=== PATIENT | female | born 1980 | race Caucasian/White ===

== ENCOUNTER 2018-08-22 20:55 | Emergency (ER) | payer OTHER ==
[~2018-08-22] VITALS: Ht 162.6 cm; Wt 81.7 kg
[2018-08-22] MEDS ORDERED: VENTOLIN HFA 1818 GM INH (22:31)
[2018-08-22 22:38] VITALS: BP 125/73
== END 2018-08-22 22:39 | disposition home or self-care (01) ==
LOC: ER 20:55
DX: Z77.098 Contact with and (suspected) exposure to other hazardous, chiefly nonmedicinal, chemicals (principal); J45.909 Unspecified asthma, uncomplicated